=== PATIENT | male | born 1990 | race Caucasian/White ===

== ENCOUNTER 2018-09-05 12:47 | Emergency (ER) | payer MEDICAID ==
--- NOTE | 2018-09-05 12:53 | EDM.PDOC ---
ED HPI GENERAL MEDICAL PROBLEM - General Chief Complaint: Behavioral/Psych Stated Complaint: [facility] Time Seen by Provider: 09/05/18 12:56 Source of Information: Reports: Patient - History of Present Illness INITIAL COMMENTS - FREE TEXT/NARRATIVE: Patient is brought here today by ambulance from the hotel in which she was staying. He states that he has history of chronic depression, this has been worse recently. He recently had a bad breakup with his girlfriend, with this he lost his home, dog and a fair amount of money. 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 He has missed a fair amount of work due to his alcohol use and was let go from his job this morning due to this. Patient states that last night he drank a fair amount of alcohol, he had approximately a fifth of vodka or maybe 1-1/2 bottles. This morning he had approximately 4 shots of vodka. He states that his goal this morning was to drink alcohol until he didn't wake up. He states he did not particularly want to , he just felt that that would be much easier than being alive and dealing with all of the stress that has been occurring in his life recently. Currently he reports just feeling very depressed. He has somewhat of a headache , did vomit this morning which she states was due to his hangover. To drink some water but has had nothing to eat today. Patient states that he has no history of seizures. He has stopped drinking alcohol for weeks at a time previously without any side effect. Patient denies any history of heart disease or lung disease. History of depression which he is on prazosin something for sleep, he thinks this is possibly trazodone but he is not sure. Patient reports that he has some support locally and the fact that his brother and his live here in [place]. He states that they have a relationship of respect and support but they are not overly close. Patient has a history of suicide attempts 2 months ago with slitting his wrists.He states that he was hospitalized in [place]. It was recommended that he attend outpatient treatment for his alcohol use and patient states that he basically "ran away" from this and came to [place] to work. - Related Data Allergies Allergy/AdvReac Type Severity Reaction Status Date / Time iodine Allergy Hives Verified 09/05/18 12:55 shellfish derived Allergy Anaphylactic Verified 09/05/18 12:55 Shock Home Meds: Home Meds Cephalexin [Keflex] 500 mg PO TID 09/05/18 [History] Mirtazapine 15 mg PO BEDTIME 09/05/18 [History] Prazosin HCl [Prazosin] 4 mg PO DAILY 09/05/18 [History] traZODone HCl [Trazodone HCl] 50 mg PO BEDTIME 09/05/18 [History] ED ROS GENERAL - Review of Systems Review Of Systems: See Below Constitutional: Reports: No Symptoms HEENT: Reports: No Symptoms Respiratory: Reports: No Symptoms Cardiovascular: Reports: No Symptoms GI/Abdominal: Reports: Nausea (Nauseated this morning, one emesis. Patient attributes this to the amount of alcohol he drank yesterday. Denies any nausea now.), Vomiting Musculoskeletal: Reports: No Symptoms Neurological: Reports: Headache. Denies: Confusion, Dizziness Psychiatric: Reports: Anxiety, Depression, Suicidal Ideation. Denies: Agitation , Homicidal Ideation - Physical Exam Exam: See Below Exam Limited By: No Limitations General Appearance: Alert, WD/WN, No Apparent Distress Eye Exam: Bilateral Eye: Normal Inspection, PERRL Ears: Normal External Exam, Normal Canal, Normal TMs Nose: Normal Inspection, Normal Mucosa Throat/Mouth: Normal Inspection, Normal Oropharynx Head Exam: Atraumatic, Normocephalic Neck: Normal Inspection, Supple, Non-Tender Respiratory/Chest: No Respiratory Distress, Lungs Clear Cardiovascular: Normal Peripheral Pulses, Regular Rate, Rhythm, No Murmur GI/Abdominal: Normal Bowel Sounds, Soft, Non-Tender Neuro Exam (Abbreviated): Alert, Oriented Psychiatric: Depressed Mood, Flat Affect Skin Exam: Warm, Dry, Intact EKG INTERPRETATION EKG Date: 09/05/18 Rhythm: NSR Rate (Beats/Min): 86 Course - Vital Signs Last Recorded V/S: Last Vital Signs Temp 97.9 F 09/05/18 12:54 Pulse 91 09/05/18 12:54 Resp 18 09/05/18 12:54 BP 120/106 H 09/05/18 12:54 Pulse Ox 98 09/05/18 12:54 - Orders/Labs/Meds Orders: Active Orders 24 hr Category Date Time Status EKG 12 Lead [EKG Documentation Completion] [RC] STAT Care 09/05/18 12:56 Active Sodium Chloride 0.9% [Saline Flush] Med 09/05/18 13:15 Active 10 ml FLUSH ASDIRECTED PRN Saline Lock Insert [OM.PC] Routine Oth 09/05/18 13:15 Ordered Medication Orders Sodium Chloride (Saline Flush) 10 ml FLUSH ASDIRECTED PRN PRN Reason: Keep Vein Open Labs: Laboratory Tests 09/05/18 09/05/18 09/05/18 Range/Units 13:16 13:27 13:27 WBC 9.57 H (4.23-9.07) K/mm3 RBC 4.74 (4.63-6.08) M/mm3 Hgb 11.1 L (13.7-17.5) gm/L Hct 35.3 L (40.1-51.0) % MCV 74.5 L (79.0-92.2) fl MCH 23.4 L (25.7-32.2) pg MCHC 31.4 L (32.2-35.5) g/dl RDW Std Deviation 42.5 (35.1-43.9) fL Plt Count 424 H (163-337) K/mm3 MPV 9.5 (9.4-12.3) fl Neutrophils % (Manual) 62 H (40-60) % Band Neutrophils % 0 (0-10) % Lymphocytes % (Manual) 29 (20-40) % Atypical Lymphs % 6 % Monocytes % (Manual) 3 (2-10) % Eosinophils % (Manual) 0 L (0.8-7.0) % Basophils % (Manual) 0 L (0.2-1.2) Platelet Estimate Adequate Hypochromasia Moderate Microcytosis Moderate RBC Morph Comment Not Reportable Sodium 142 (136-145) mEq/L Potassium 3.8 (3.5-5.1) mEq/L Chloride 105 (98-107) mEq/L Carbon Dioxide 27 (21-32) mEq/L Anion Gap 13.8 (5-15) BUN 14 (7-18) mg/dL Creatinine 1.1 (0.7-1.3) mg/dL Est Cr Clr Drug Dosing 111.98 mL/min Estimated GFR (MDRD) > 60 (>60) mL/min BUN/Creatinine Ratio 12.7 L (14-18) Glucose 102 (74-106) mg/dL Calcium 9.3 (8.5-10.1) mg/dL Magnesium (1.8-2.4) mg/dl Total Bilirubin 0.2 (0.2-1.0) mg/dL AST 19 (15-37) U/L ALT 47 (16-63) U/L Alkaline Phosphatase 81 (46-116) U/L Total Protein 7.6 (6.4-8.2) g/dl Albumin 3.9 (3.4-5.0) g/dl Globulin 3.7 gm/dL Albumin/Globulin Ratio 1.1 (1-2) TSH 3rd Generation 0.941 (0.358-3.74) uIU/mL Urine Opiates Screen Negative (CZMVWY=685) Ur Buprenorphine Scrn Negative (CUTOFF=10) Ur Oxycodone Screen Negative (DNO1UT=578) Urine Methadone Screen Negative (SBG4TW=630) Ur Propoxyphene Screen Negative (QNUKDI=628) Ur Barbiturates Screen Negative (YHUJVF=325) Ur Tricyclics Screen Negative (CAUZSO=197) Ur Phencyclidine Scrn Negative (CUTOFF=25) Ur Amphetamine Screen Negative (FCXBWL=013) U Methamphetamines Scrn Negative (TYEXPX=913) U Benzodiazepines Scrn Negative (FDIODC=679) U Cocaine Metab Screen Negative (HBZAZB=591) U Marijuana (THC) Screen Negative (CUTOFF=50) Ethyl Alcohol 0.04 (0.00) gm% 09/05/18 Range/Units 13:27 WBC (4.23-9.07) K/mm3 RBC (4.63-6.08) M/mm3 Hgb (13.7-17.5) gm/L Hct (40.1-51.0) % MCV (79.0-92.2) fl MCH (25.7-32.2) pg MCHC (32.2-35.5) g/dl RDW Std Deviation (35.1-43.9) fL Plt Count (163-337) K/mm3 MPV (9.4-12.3) fl Neutrophils % (Manual) (40-60) % Band Neutrophils % (0-10) % Lymphocytes % (Manual) (20-40) % Atypical Lymphs % % Monocytes % (Manual) (2-10) % Eosinophils % (Manual) (0.8-7.0) % Basophils % (Manual) (0.2-1.2) Platelet Estimate Hypochromasia Microcytosis RBC Morph Comment Sodium (136-145) mEq/L Potassium (3.5-5.1) mEq/L Chloride (98-107) mEq/L Carbon Dioxide (21-32) mEq/L Anion Gap (5-15) BUN (7-18) mg/dL Creatinine (0.7-1.3) mg/dL Est Cr Clr Drug Dosing mL/min Estimated GFR (MDRD) (>60) mL/min BUN/Creatinine Ratio (14-18) Glucose (74-106) mg/dL Calcium (8.5-10.1) mg/dL Magnesium 2.1 (1.8-2.4) mg/dl Total Bilirubin (0.2-1.0) mg/dL AST (15-37) U/L ALT (16-63) U/L Alkaline Phosphatase (46-116) U/L Total Protein (6.4-8.2) g/dl Albumin (3.4-5.0) g/dl Globulin gm/dL Albumin/Globulin Ratio (1-2) TSH 3rd Generation (0.358-3.74) uIU/mL Urine Opiates Screen (UCJARA=583) Ur Buprenorphine Scrn (CUTOFF=10) Ur Oxycodone Screen (TPX8GD=263) Urine Methadone Screen (MDG9NY=735) Ur Propoxyphene Screen (DMISGM=704) Ur Barbiturates Screen (ZPCBNP=695) Ur Tricyclics Screen (PRRXUA=255) Ur Phencyclidine Scrn (CUTOFF=25) Ur Amphetamine Screen (IOQSSY=543) U Methamphetamines Scrn (TUITHQ=213) U Benzodiazepines Scrn (KPFAJF=871) U Cocaine Metab Screen (JYILNT=130) U Marijuana (THC) Screen (CUTOFF=50) Ethyl Alcohol (0.00) gm% Meds: Medications Generic Name Dose Route Start Last Admin Trade Name Freq PRN Reason Stop Dose Admin Sodium Chloride 10 ml 09/05/18 13:15 Saline Flush FLUSH ASDIRECTED PRN Keep Vein Open Discontinued Medications Generic Name Dose Route Start Last Admin Trade Name Freq PRN Reason Stop Dose Admin Acetaminophen 650 mg 09/05/18 14:22 Tylenol PO 09/05/18 14:23 NOW ONE - Re-Assessments/Exams Free Text/Narrative Re-Assessment/Exam: WBC 9570 with 62% neutrophils and no bands. Creatinine 1.1. Anion gap of 13.8. TSH 0.941. EtOH 0.4, drug screen is negative. Patient is very much willing to obtain treatment for both his depression and his alcohol use. He states it is gone on too long and he is ready to remove forward. He does not want to , he just felt that that would be easier. Patient is eating lunch, drinking fluids adequately. IV fluids not indicated. He did have a bit of headache so he was given 650 mg of Tylenol by mouth. Discussed with the counselor, Radha from [facility] and she will come up to evaluate the panic patient to see if he would be a candidate for their crisis bed. 09/05/18 14:05 Patient interviewed by Radha from [facility], he is a good candidate for their residential care facility. Report was called to nurse, Kala at [phone]. Per medication bottles that patient had, he is on mirtazapine 15 mg at bedtime, Prazosin 4 mg by mouth daily and trazodone 50 g by mouth at bedtime. Hemoglobin is a bit low at 11.1. Patient is to follow-up in the clinic in approximately 2 weeks to have this rechecked to ensure it is improving. 09/05/18 15:05 Departure - Departure Time of Disposition: 15:08 Disposition: DC/Tfer to Other 70 Condition: Fair Clinical Impression: Depressive disorder, Alcohol abuse - Discharge Information Instructions: Living With Depression Referrals: Sandra Ceballos PA [Emergency Provider] - Forms: ED Department Discharge - My Orders Last 24 Hours: My Active Orders 09/05/18 12:56 EKG 12 Lead [EKG Documentation Completion] [RC] STAT 09/05/18 13:15 Sodium Chloride 0.9% [Saline Flush] 10 ml FLUSH ASDIRECTED PRN Saline Lock Insert [OM.PC] Routine - Assessment/Plan Last 24 Hours: My Active Orders 09/05/18 12:56 EKG 12 Lead [EKG Documentation Completion] [RC] STAT 09/05/18 13:15 Sodium Chloride 0.9% [Saline Flush] 10 ml FLUSH ASDIRECTED PRN Saline Lock Insert [OM.PC] Routine
[2018-09-05] MEDS ORDERED: Sodium Chloride 0.9% 10 ML Syringe FLUSH PRN (13:15)
[2018-09-05] MEDS ORDERED: Acetaminophen 325 MG Tab PO ONE (14:22)
== END 2018-09-05 15:15 | disposition other institution (70) ==
LOC: JD.ED 12:47
DX: F32.9 Major depressive disorder, single episode, unspecified (principal); F10.10 Alcohol abuse, uncomplicated; Y90.0 Blood alcohol level of less than 20 mg/100 ml; Z91.013 Allergy to seafood
CPT/HCPCS: 36415; 80053; 80306; 83735; 84443; 85007; 85027; 93005; 99285; G0480; 93010; 99284

== ENCOUNTER 2018-09-22 12:16 | Emergency (ER) | payer MEDICAID, OTHER ==
--- NOTE | 2018-09-22 12:53 | EDM.PDOC ---
ED HPI GENERAL MEDICAL PROBLEM - General Chief Complaint: General Stated Complaint: HIGH BP Time Seen by Provider: 09/22/18 12:31 Source of Information: Reports: Patient, RN Notes Reviewed History Limitations: Reports: No Limitations - History of Present Illness INITIAL COMMENTS - FREE TEXT/NARRATIVE: The patient states that he is currently residing at [facility], but that he had a video appointment with Dr. Dangelo at [facility] today. He states that his BP was checked, and found to be elevated at 158/108, then rechecked, finding it to be 160/114. He was sent here for evaluation. The patient states that he has had some rhinorrhea for the past week, but denies having a headache, nausea, or blurry vision. The patient has taken some ibuprofen, but denies taking any nasal decongestant sprays. The patient does not have a history of hypertension, although he does have a history of binge alcoholism. His last drink was about 3 days ago. The patient is currently residing at [facility] since 09/05/2018, for treatment of binge alcoholism and depression. He is currently being treated with Pristiq and buspirone. The patient's PCP is in [place]. The patient initially moved here just for work, but is now here permanently. - Related Data Allergies Allergy/AdvReac Type Severity Reaction Status Date / Time iodine Allergy Hives Verified 09/05/18 12:55 shellfish derived Allergy Anaphylactic Verified 09/05/18 12:55 Shock Home Meds: Home Meds Desvenlafaxine Succinate [Pristiq ER] 50 mg PO DAILY 09/22/18 [History] busPIRone [Buspar] 15 mg PO TID 09/22/18 [History] Past Medical History Musculoskeletal History: Reports: Fracture (left forearm, left foot) Psychiatric History: Reports: Addiction (alcohol), Anxiety, Depression, Suicide Attempt Endocrine/Metabolic History: Reports: Obesity/BMI 30+ - Past Surgical History HEENT Surgical History: Reports: Oral Surgery (wisdom teeth extraction) GI Surgical History: Reports: Hernia, Abdominal (umbilical) Musculoskeletal Surgical History: Reports: ORIF (bilateral hands) Social & Family History - Tobacco Use Smoking Status *Q: Former Smoker Years of Tobacco use: 2 Packs/Tins Daily: 0.8 Month/Year Tobacco Last Used: Quit 2010 - Caffeine Use Caffeine Use: Reports: None - Alcohol Use Alcohol Use History: Yes Date/Time of Last Drink Comment: 1.5 L whiskey/day when binges. Last drank around 09/19/2018. Alcohol Use Frequency: Binges - Recreational Drug Use Recreational Drug Use: Yes Drug Use in Last 12 Months: No Recreational Drug Type: Reports: Cocaine (last snorted 2011), Methamphetamine ( last ate 2011) - Living Situation & Occupation Living situation: Reports: Single, Other ([facility]) Occupation: Employed ED ROS GENERAL - Review of Systems Review Of Systems: ROS reveals no pertinent complaints other than HPI. ED EXAM, GENERAL - Physical Exam Exam: See Below Exam Limited By: No Limitations General Appearance: Alert, WD/WN, No Apparent Distress Eye Exam: Bilateral Eye: EOMI, Normal Inspection Ears: Normal External Exam, Hearing Grossly Normal Nose: Normal Inspection Throat/Mouth: Normal Inspection, Normal Lips, Normal Voice, No Airway Compromise Head: Atraumatic, Normocephalic Neck: Normal Inspection, Full Range of Motion Respiratory/Chest: No Respiratory Distress, Lungs Clear, Normal Breath Sounds, No Accessory Muscle Use Cardiovascular: Normal Peripheral Pulses, Regular Rate, Rhythm, No Gallop, No JVD, No Murmur, No Rub Peripheral Pulses: 4+: Radial (L), Radial (R) GI/Abdominal: Normal Bowel Sounds, Soft, Non-Tender, No Organomegaly, No Distention, No Abnormal Bruit, No Mass, Other (Obese) (Male) Exam: Deferred Rectal (Males) Exam: Deferred Back Exam: Normal Inspection, Full Range of Motion, NT Extremities: Normal Inspection, Normal Range of Motion, Normal Capillary Refill Neurological: Alert, Oriented, Normal Cognition, No Motor/Sensory Deficits Psychiatric: Normal Affect Skin Exam: Warm, Dry, Intact, Normal Color, No Rash Course - Vital Signs Last Recorded V/S: Last Vital Signs Temp 36.6 C 09/22/18 12:25 Pulse 84 09/22/18 12:25 Resp 18 09/22/18 12:25 BP 145/115 H 09/22/18 12:25 Pulse Ox 99 09/22/18 12:25 - Re-Assessments/Exams Free Text/Narrative Re-Assessment/Exam: 09/22/18 12:47 The patient's BP here in the ED is 145/115, and he has no complaints of nausea, headache, or blurry vision. I explained to the patient that his blood pressure is nowhere near where we would consider emergent treatment, and I also explained how he can check his blood pressure, to see if he has hypertension. Departure - Departure Time of Disposition: 12:48 Disposition: Home, Self-Care 01 Condition: Good Clinical Impression: Elevated blood pressure reading - Discharge Information *PRESCRIPTION DRUG MONITORING PROGRAM REVIEWED*: Not Applicable *COPY OF PRESCRIPTION DRUG MONITORING REPORT IN PATIENT RAI: Not Applicable Instructions: Hypertension Referrals: PCP,Not In Area [Primary Care Provider] - Forms: ED Department Discharge Additional Instructions: You were seen in the emergency room for an elevated blood pressure reading at [facility]. Here in the ED, your blood pressure was only mildly elevated at 145/115, well below a level that would require emergent treatment. In order to determine if you have hypertension (chronically elevated blood pressure while under restful conditions), your blood pressure needs to be checked under restful conditions = you are sitting quietly for at least 5, and preferably 15 minutes, you are not sick, you are not in pain, and you are not anxious. While under restful conditions, have your blood pressure checked 2-3 times a week, preferably at different times of the day, for 2-3 weeks. Write the numbers down, and show them to your PCP, who can then determine if your numbers reflect hypertension. If any other problems, please do not hesitate to return to the ER.
== END 2018-09-22 13:03 | disposition home or self-care (01) ==
LOC: JD.ED 12:16
DX: R03.0 Elevated blood-pressure reading, without diagnosis of hypertension (principal); Z91.09 Other allergy status, other than to drugs and biological substances; Z91.013 Allergy to seafood; Z79.899 Other long term (current) drug therapy; Z87.891 Personal history of nicotine dependence
CPT/HCPCS: 99281; 99283

== ENCOUNTER 2018-10-14 15:37 | Emergency (ER) | payer MEDICAID ==
[2018-10-14] MEDS ORDERED: Sodium Chloride 0.9% 10 ML Syringe FLUSH PRN (16:06)
[2018-10-14] MEDS ORDERED: LORazepam 2 MG/ML SDV IVPUSH ONE ×2 (16:07→17:45)
[2018-10-14] MEDS ORDERED: Sodium Chloride 0.9% 1,000 ML IV SCH (16:15)
--- NOTE | 2018-10-14 16:48 | EDM.PDOCBH ---
ED HPI GENERAL MEDICAL PROBLEM - General Chief Complaint: Drug or Alcohol Abuse Stated Complaint: [facility] Time Seen by Provider: 10/14/18 15:47 Source of Information: Reports: Patient, EMS History Limitations: Reports: No Limitations - History of Present Illness INITIAL COMMENTS - FREE TEXT/NARRATIVE: The patient presents by [facility] for alcohol withdrawal. The patient admits to drinking heavily for the past 7 days. He drank a total of 8 1 /2 gallons of whiskey over the past 7 days. He was seeing [facility] and was at the [facility] over a week ago. His job was not cooperating and he had to leave and then he started drinking again. He tried to drink last night and started vomiting. He vomited many times last night and today. He is shaking and has nausea and vomiting. He denies using street drugs. He says he is a domingo drinker and he will got weeks without drinking and then does it for many days. He started drinking at age 12. Onset: Gradual Duration: Day(s): (last night) Severity: Severe Improves with: Reports: None Worsens with: Reports: None Associated Symptoms: Reports: Nausea/Vomiting. Denies: Chest Pain, Cough, Fever /Chills, Headaches, Shortness of Breath Treatments COUNTY DIRECTOR: Reports: Other (see below) Other Treatments COUNTY DIRECTOR: iv and zofran Right Upper Abdomen Pain Score (Numeric/FACES): 6 Headache Pain Score (Numeric/FACES): 4 - Related Data Allergies Allergy/AdvReac Type Severity Reaction Status Date / Time iodine Allergy Hives Verified 09/05/18 12:55 shellfish derived Allergy Anaphylactic Verified 09/05/18 12:55 Shock Home Meds: Home Meds busPIRone [Buspar] 15 mg PO TID 09/22/18 [History] LORazepam [Ativan] 1 mg PO TID #18 tablet 10/14/18 [Rx] Ondansetron [Zofran ODT] 4 mg PO Q6H PRN #20 tab.dis 10/14/18 [Rx] Past Medical History Musculoskeletal History: Reports: Fracture Neurological History: Reports: Concussion Psychiatric History: Reports: Addiction, Anxiety, Depression, Suicide Attempt Endocrine/Metabolic History: Reports: Obesity/BMI 30+ - Infectious Disease History Infectious Disease History: Reports: Chicken Pox - Past Surgical History HEENT Surgical History: Reports: Oral Surgery GI Surgical History: Reports: Hernia, Abdominal Musculoskeletal Surgical History: Reports: ORIF Social & Family History - Tobacco Use Smoking Status *Q: Unknown Ever Smoked - Caffeine Use Caffeine Use: Reports: Coffee, Energy Drinks - Alcohol Use Date of Last Drink: 10/13/18 Time of Last Drink: 01:00 - Recreational Drug Use Recreational Drug Use: No - Living Situation & Occupation Living situation: Reports: Single, Other ([facility]) Occupation: Employed ED ROS GENERAL - Review of Systems Review Of Systems: See Below Constitutional: Reports: No Symptoms HEENT: Reports: No Symptoms Respiratory: Reports: No Symptoms Cardiovascular: Reports: No Symptoms Endocrine: Reports: No Symptoms GI/Abdominal: Reports: Nausea, Vomiting. Denies: Abdominal Pain, Diarrhea : Reports: No Symptoms Musculoskeletal: Reports: No Symptoms Skin: Reports: No Symptoms Neurological: Reports: Other (shaking) ED EXAM, BEHAVIORAL HEALTH - Physical Exam Exam: See Below Exam Limited By: No Limitations General Appearance: Alert, Mild Distress Ears: Normal External Exam Nose: Normal Inspection Head: Atraumatic, Normocephalic Neck: Normal Inspection Respiratory/Chest: No Respiratory Distress, Lungs Clear, Normal Breath Sounds Cardiovascular: Regular Rate, Rhythm, No Edema, No Murmur GI/Abdominal: Soft, Non-Tender, No Organomegaly, No Mass Extremities: Normal Inspection Neurological: Alert, No Motor/Sensory Deficits, Oriented x 3 COURSE, BEHAVIORAL HEALTH COMP - Course Vital Signs: Last Vital Signs Temp 98.8 F 10/14/18 16:27 Pulse 108 H 10/14/18 16:27 Resp 20 10/14/18 16:27 BP 139/94 H 10/14/18 16:27 Pulse Ox 95 10/14/18 16:27 Orders, Labs, Meds: Active Orders 24 hr Category Date Time Status Cardiac Monitoring [RC] . DIRECTED Care 10/14/18 16:06 Active Peripheral IV Care [RC] . DIRECTED Care 10/14/18 16:07 Active DRUG SCREEN, URINE [URCHEM] Stat Lab 10/14/18 16:06 Ordered Magnesium Sulfate/Water [Magnesium Sulfate 2 GM in Med 10/14/18 17:10 Active Water 50 ML] 2 gm Premix Bag 1 bag IV ONETIME Sodium Chloride 0.9% [Normal Saline] 1,000 ml Med 10/14/18 16:15 Active IV .BOLUS Sodium Chloride 0.9% [Saline Flush] Med 10/14/18 16:06 Active 10 ml FLUSH ASDIRECTED PRN Peripheral IV Insertion Adult [OM.PC] Stat Oth 10/14/18 16:06 Ordered Medication Orders Sodium Chloride (Normal Saline) 1,000 mls @ 1,000 mls/hr IV .BOLUS SHANNON Last Admin: 10/14/18 16:24 Dose: 1,000 mls/hr Magnesium Sulfate 2 gm/ Premix 50 mls @ 25 mls/hr IV ONETIME ONE Stop: 10/14/18 19:09 Last Admin: 10/14/18 17:20 Dose: 25 mls/hr Sodium Chloride (Saline Flush) 10 ml FLUSH ASDIRECTED PRN PRN Reason: Keep Vein Open Last Admin: 10/14/18 16:26 Dose: 10 ml Laboratory Tests 10/14/18 10/14/18 Range/Units 16:25 16:25 WBC 6.85 (4.23-9.07) K/mm3 RBC 5.36 (4.63-6.08) M/mm3 Hgb 11.4 L (13.7-17.5) gm/L Hct 36.0 L (40.1-51.0) % MCV 67.2 L (79.0-92.2) fl MCH 21.3 L (25.7-32.2) pg MCHC 31.7 L (32.2-35.5) g/dl RDW Std Deviation 43.1 (35.1-43.9) fL Plt Count 317 (163-337) K/mm3 MPV 8.9 L (9.4-12.3) fl Neut % (Auto) 51.5 (34.0-67.9) % Lymph % (Auto) 34.9 (21.8-53.1) % [place] % (Auto) 12.1 (5.3-12.2) % Eos % (Auto) 0.7 L (0.8-7.0) Baso % (Auto) 0.7 (0.1-1.2) % Neut # (Auto) 3.52 (1.78-5.38) K/mm3 Lymph # (Auto) 2.39 (1.32-3.57) K/mm3 [place] # (Auto) 0.83 H (0.30-0.82) K/mm3 Eos # (Auto) 0.05 (0.04-0.54) K/mm3 Baso # (Auto) 0.05 (0.01-0.08) K/mm3 Manual Slide Review Abnormal smear Sodium 138 (136-145) mEq/L Potassium 3.1 L (3.5-5.1) mEq/L Chloride 101 (98-107) mEq/L Carbon Dioxide 25 (21-32) mEq/L Anion Gap 15.1 H (5-15) BUN 8 (7-18) mg/dL Creatinine 1.1 (0.7-1.3) mg/dL Est Cr Clr Drug Dosing 111.98 mL/min Estimated GFR (MDRD) > 60 (>60) mL/min BUN/Creatinine Ratio 7.3 L (14-18) Glucose 107 H (74-106) mg/dL Calcium 8.8 (8.5-10.1) mg/dL Magnesium 1.4 L (1.8-2.4) mg/dl Total Bilirubin 1.0 (0.2-1.0) mg/dL AST 37 (15-37) U/L ALT 46 (16-63) U/L Alkaline Phosphatase 63 (46-116) U/L Total Protein 7.7 (6.4-8.2) g/dl Albumin 4.1 (3.4-5.0) g/dl Globulin 3.6 gm/dL Albumin/Globulin Ratio 1.1 (1-2) Ethyl Alcohol 0.00 (0.00) gm% Medications Generic Name Dose Route Start Last Admin Trade Name Freq PRN Reason Stop Dose Admin Sodium Chloride 1,000 mls @ 1,000 mls/hr 10/14/18 16:15 10/14/18 16:24 Normal Saline IV 1,000 mls/hr .BOLUS SHANNON Administration Magnesium Sulfate 2 gm/ Premix 50 mls @ 25 mls/hr 10/14/18 17:10 10/14/18 17: 20 IV 10/14/18 19:09 25 mls/hr ONETIME ONE Administration Sodium Chloride 10 ml 10/14/18 16:06 10/14/18 16:26 Saline Flush FLUSH 10 ml ASDIRECTED PRN Administration Keep Vein Open Discontinued Medications Generic Name Dose Route Start Last Admin Trade Name Freq PRN Reason Stop Dose Admin Lorazepam 1 mg 10/14/18 16:07 10/14/18 16:24 Ativan IVPUSH 10/14/18 16:08 1 mg ONETIME ONE Administration Lorazepam 0.5 mg 10/14/18 17:45 Ativan IVPUSH 10/14/18 17:46 ONETIME ONE Metoclopramide HCl 10 mg 10/14/18 17:07 10/14/18 17:14 Reglan IVPUSH 10/14/18 17:08 10 mg ONETIME ONE Administration Re-Assessment/Re-Exam: I ordered an IV LR 1L bolus, zofran 4mg IV, ativan 1mg IV, labs and a urine drug screen. His CBC looks good. His potassium was low at 3.1. His anion gap was elevated at 15.1. His glucose was 107. His magnesium was low at 1.4. I gave him 2 grams of magnesium. His ETOH was 0. He still is nauseated so I ordered reglan 10mg IV. He feels better. I ordered some ativan 0.5mg IV. I will discharge him home with some zofran and ativan to help with withdrawals. I will have him call [facility] tomorrow. Departure - Departure Time of Disposition: 18:10 Disposition: Home, Self-Care 01 Condition: Good Clinical Impression: Alcohol withdrawal syndrome Qualifiers: Complication of substance-induced condition: uncomplicated Qualified Code(s): F10.230 - Alcohol dependence with withdrawal, uncomplicated - Discharge Information *PRESCRIPTION DRUG MONITORING PROGRAM REVIEWED*: No *COPY OF PRESCRIPTION DRUG MONITORING REPORT IN PATIENT RAI: No Prescriptions: LORazepam [Ativan] 1 mg PO TID #18 tablet Ondansetron [Zofran ODT] 4 mg PO Q6H PRN #20 tab.dis PRN Reason: Nausea\vomiting Referrals: PCP,None [Primary Care Provider] - Kalpesh Martinez [email or web address] [Physician Auto Claims Adjuster] - 1 Week Additional Instructions: Drink plenty of fluids. Take pepcid 20mg daily for 5 days. Take a multivitamin daily. Take the ativan 1mg by mouth 3 times per day for 3 days, then 1 mg by mouth 2 times per day for 3 days and then 1mg by mouth at night for 3 days. Take zofran every 6 hours as needed for nausea and vomiting. Call [facility] in the morning for help stopping breathing. Please return if you are worse. - My Orders Last 24 Hours: My Active Orders 10/14/18 16:06 Cardiac Monitoring [RC] . DIRECTED DRUG SCREEN, URINE [URCHEM] Stat Sodium Chloride 0.9% [Saline Flush] 10 ml FLUSH ASDIRECTED PRN Peripheral IV Insertion Adult [OM.PC] Stat 10/14/18 16:07 Peripheral IV Care [RC] . DIRECTED 10/14/18 16:15 Sodium Chloride 0.9% [Normal Saline] 1,000 ml IV .BOLUS 10/14/18 17:10 Magnesium Sulfate/Water [Magnesium Sulfate 2 GM in Water 50 ML] 2 gm Premix Bag 1 bag IV ONETIME - Assessment/Plan Last 24 Hours: My Active Orders 10/14/18 16:06 Cardiac Monitoring [RC] . DIRECTED DRUG SCREEN, URINE [URCHEM] Stat Sodium Chloride 0.9% [Saline Flush] 10 ml FLUSH ASDIRECTED PRN Peripheral IV Insertion Adult [OM.PC] Stat 10/14/18 16:07 Peripheral IV Care [RC] . DIRECTED 10/14/18 16:15 Sodium Chloride 0.9% [Normal Saline] 1,000 ml IV .BOLUS 10/14/18 17:10 Magnesium Sulfate/Water [Magnesium Sulfate 2 GM in Water 50 ML] 2 gm Premix Bag 1 bag IV ONETIME
[2018-10-14] MEDS ORDERED: Metoclopramide 10 MG/2 ML SDV IVPUSH ONE (17:07)
[2018-10-14] MEDS ORDERED: Magnesium Sulfate/Water 2 GM in Premix Bag 1 BAG IV ONE (17:10)
== END 2018-10-14 19:38 | disposition home or self-care (01) ==
LOC: JD.ED 15:37
DX: F10.230 Alcohol dependence with withdrawal, uncomplicated (principal); F41.9 Anxiety disorder, unspecified; F32.9 Major depressive disorder, single episode, unspecified; Z79.899 Other long term (current) drug therapy
CPT/HCPCS: 36415; 80053; 80306; 83735; 85025; 96361; 96365; 96366; 96375; 96376; 99284; G0480; J2060; J2765; J3475; J7040

== ENCOUNTER 2018-10-16 12:06 | Emergency (ER) | payer SELFPAY ==
[2018-10-16] MEDS ORDERED: Sodium Chloride 0.9% 10 ML Syringe FLUSH PRN (12:25)
[2018-10-16] MEDS ORDERED: Ondansetron 4 MG/2 ML SDV IVPUSH ONE (12:34)
--- NOTE | 2018-10-16 12:46 | EDM.PDOCBH ---
ED HPI GENERAL MEDICAL PROBLEM - General Chief Complaint: Drug or Alcohol Abuse Stated Complaint: medical clearance for [facility] Time Seen by Provider: 10/16/18 12:18 Source of Information: Reports: Patient, Old Records, RN Notes Reviewed History Limitations: Reports: No Limitations - History of Present Illness INITIAL COMMENTS - FREE TEXT/NARRATIVE: Patient is a 27-year-old male who presents to the ED today for the evaluation of medical clearance so that he may be placed in the RISK bed at [facility]. He notes that he was seen here a few nights ago for over consumption of alcohol as well. The patient relates multiple stressors at home that have led him to start drinking again. He states that he has been on a binge of alcohol drinking for the last 2 weeks, where he is drinking a half a gallon of whiskey daily. However last night he states that he only drank 8 or 9 beers as he was not able to stomach the whiskey any longer. He states his last drink was around 10 or 11 PM. He comes to the ED with nausea but no vomiting and diarrhea , muscle soreness in his abdomen from vomiting the other night prior, he states that he also has a mild headache at this time. He did come to the ED with a member from the [facility] facility by the name of Shaista, and they are requesting that he be medically evaluated for detox clearance. He will need to be sent to the [facility] with medications to help him assist with the detox. The patient states that his last real meal was yesterday. - Related Data Allergies Allergy/AdvReac Type Severity Reaction Status Date / Time iodine Allergy Hives Verified 09/05/18 12:55 shellfish derived Allergy Anaphylactic Verified 09/05/18 12:55 Shock Home Meds: Home Meds busPIRone [Buspar] 15 mg PO TID 09/22/18 [History] LORazepam [Ativan] 1 mg PO ASDIRECTED #13 tablet 10/16/18 [Rx] Ondansetron [Zofran ODT] 4 mg PO Q6H PRN #28 tab.dis 10/16/18 [Rx] Past Medical History Musculoskeletal History: Reports: Fracture Neurological History: Reports: Concussion Psychiatric History: Reports: Addiction, Anxiety, Depression, Suicide Attempt Endocrine/Metabolic History: Reports: Obesity/BMI 30+ - Infectious Disease History Infectious Disease History: Reports: Chicken Pox - Past Surgical History HEENT Surgical History: Reports: Oral Surgery GI Surgical History: Reports: Hernia, Abdominal Musculoskeletal Surgical History: Reports: ORIF Social & Family History - Tobacco Use Smoking Status *Q: Never Smoker - Caffeine Use Caffeine Use: Reports: Coffee, Energy Drinks - Alcohol Use Days Per Week of Alcohol Use: 7 Number of Drinks Per Day: 12 Total Drinks Per Week: 84 - Recreational Drug Use Recreational Drug Use: No - Living Situation & Occupation Living situation: Reports: Single, Other ([facility]) Occupation: Employed ED ROS GENERAL - Review of Systems Review Of Systems: See Below Constitutional: Reports: Chills HEENT: Denies: Vertigo, Vision Change Respiratory: Reports: No Symptoms Cardiovascular: Reports: No Symptoms Endocrine: Reports: No Symptoms GI/Abdominal: Reports: Abdominal Pain (Generalized due to episodes of vomiting a few days ago.), Diarrhea, Nausea. Denies: Vomiting : Reports: No Symptoms Musculoskeletal: Reports: No Symptoms Skin: Reports: No Symptoms Neurological: Reports: No Symptoms Psychiatric: Reports: No Symptoms Hematologic/Lymphatic: Reports: No Symptoms Immunologic: Reports: No Symptoms ED EXAM, BEHAVIORAL HEALTH - Physical Exam Exam: See Below Exam Limited By: No Limitations General Appearance: Alert, WD/WN, No Apparent Distress Eye Exam: Bilateral Eye: EOMI, Normal Inspection, PERRL Ears: Normal External Exam Nose: Normal Inspection Throat/Mouth: Normal Inspection, Normal Lips, Normal Teeth, Normal Gums, Normal Oropharynx, Normal Voice, No Airway Compromise Head: Atraumatic, Normocephalic Neck: Normal Inspection, Supple, Non-Tender, Full Range of Motion Respiratory/Chest: No Respiratory Distress, Lungs Clear, Normal Breath Sounds, No Accessory Muscle Use, Chest Non-Tender Cardiovascular: Normal Peripheral Pulses, Regular Rate, Rhythm, No Edema, No Murmur GI/Abdominal: Normal Bowel Sounds, Soft, Non-Tender, No Distention Extremities: Normal Inspection, Normal Capillary Refill Neurological: Alert, Normal Mood/Affect, Normal Cognition, Normal Gait, Normal Reflexes, No Motor/Sensory Deficits, Oriented x 3 Psychiatric: Alert, Normal Affect, Normal Cognition, Normal Mood, Oriented Skin Exam: Warm, Dry, Intact, Normal color, No rash COURSE, BEHAVIORAL HEALTH COMP - Course Vital Signs: Last Vital Signs Temp 97.9 F 10/16/18 12:16 Pulse 110 H 10/16/18 12:16 Resp 16 10/16/18 12:16 BP 126/106 H 10/16/18 12:16 Pulse Ox 100 10/16/18 12:16 Orders, Labs, Meds: Active Orders 24 hr Category Date Time Status Peripheral IV Care [RC] . DIRECTED Care 10/16/18 12:25 Active CBC WITH MANUAL DIFF [HEME] Stat Lab 10/16/18 12:37 Results Sodium Chloride 0.9% [Saline Flush] Med 10/16/18 12:25 Active 10 ml FLUSH ASDIRECTED PRN Peripheral IV Insertion Adult [OM.PC] Routine Oth 10/16/18 12:25 Ordered Medication Orders Sodium Chloride (Saline Flush) 10 ml FLUSH ASDIRECTED PRN PRN Reason: Keep Vein Open Last Admin: 10/16/18 12:42 Dose: 10 ml Laboratory Tests 10/16/18 10/16/18 10/16/18 Range/Units 12:37 12:37 13:02 WBC 7.14 (4.23-9.07) K/mm3 RBC 5.42 (4.63-6.08) M/mm3 Hgb 11.4 L (13.7-17.5) gm/L Hct 37.1 L (40.1-51.0) % MCV 68.5 L (79.0-92.2) fl MCH 21.0 L (25.7-32.2) pg MCHC 30.7 L (32.2-35.5) g/dl RDW Std Deviation 43.5 (35.1-43.9) fL Plt Count 290 (163-337) K/mm3 MPV 9.6 (9.4-12.3) fl Sodium 137 (136-145) mEq/L Potassium 3.7 (3.5-5.1) mEq/L Chloride 102 (98-107) mEq/L Carbon Dioxide 23 (21-32) mEq/L Anion Gap 15.7 H (5-15) BUN 12 (7-18) mg/dL Creatinine 1.1 (0.7-1.3) mg/dL Est Cr Clr Drug Dosing 111.98 mL/min Estimated GFR (MDRD) > 60 (>60) mL/min BUN/Creatinine Ratio 10.9 L (14-18) Glucose 125 H (74-106) mg/dL Calcium 9.0 (8.5-10.1) mg/dL Magnesium 1.8 (1.8-2.4) mg/dl Total Bilirubin 0.2 (0.2-1.0) mg/dL AST 28 (15-37) U/L ALT 45 (16-63) U/L Alkaline Phosphatase 68 (46-116) U/L Total Protein 7.4 (6.4-8.2) g/dl Albumin 3.7 (3.4-5.0) g/dl Globulin 3.7 gm/dL Albumin/Globulin Ratio 1.0 (1-2) Urine Opiates Screen Negative (KXAFEJ=042) Ur Buprenorphine Scrn Negative (CUTOFF=10) Ur Oxycodone Screen Negative (LEB8RB=452) Urine Methadone Screen Negative (ZFT5YX=809) Ur Propoxyphene Screen Negative (BQKQUI=040) Ur Barbiturates Screen Negative (CBECXE=413) Ur Tricyclics Screen Negative (ZHAFWF=567) Ur Phencyclidine Scrn Negative (CUTOFF=25) Ur Amphetamine Screen Negative (NNHOEH=625) U Methamphetamines Scrn Negative (UARYVI=604) U Benzodiazepines Scrn Negative (BDNRXC=346) U Cocaine Metab Screen Negative (PQMONQ=701) U Marijuana (THC) Screen Negative (CUTOFF=50) Ethyl Alcohol 0.00 (0.00) gm% Medications Generic Name Dose Route Start Last Admin Trade Name Freq PRN Reason Stop Dose Admin Sodium Chloride 10 ml 10/16/18 12:25 10/16/18 12:42 Saline Flush FLUSH 10 ml ASDIRECTED PRN Administration Keep Vein Open Discontinued Medications Generic Name Dose Route Start Last Admin Trade Name Freq PRN Reason Stop Dose Admin Ondansetron HCl 4 mg 10/16/18 12:34 10/16/18 12:43 Zofran IVPUSH 10/16/18 12:35 4 mg ONETIME ONE Administration Discharge vs Psych Eval/Treatment:: 10/16/18 13:25 Patient presents to the ED for medical clearance to be placed in the RISK bed at [facility]. I did order a EtOH, CBC, CMP, urine drug screen and further evaluation. His EtOH level is 0.00, and all other labs are essentially within normal limits. His anion gap was up had elevated at 15.7 but I feel he can I have provided the patient with 5 days worth of Ativan, to be taken 1 mg 3 times daily for 3 days and then only 1 mg twice daily for 2 days, and oral PRN Zofran as needed for nausea. Departure - Departure Time of Disposition: 13:33 Disposition: DC/Tfer to Other 70 Condition: Fair Clinical Impression: Alcohol withdrawal Qualifiers: Complication of substance-induced condition: uncomplicated Qualified Code(s): F10.230 - Alcohol dependence with withdrawal, uncomplicated - Discharge Information *PRESCRIPTION DRUG MONITORING PROGRAM REVIEWED*: No *COPY OF PRESCRIPTION DRUG MONITORING REPORT IN PATIENT RAI: No Instructions: Alcohol Withdrawal, [id number] Referrals: PCP,None [Primary Care Provider] - Additional Instructions: You have been evaluated in the ED today for your alcohol withdrawal and medical clearance for placement at [facility]. Your labs were essentially within normal limits. Your blood alcohol level was 0.00. You are cleared for placement into the RISK bed at [facility] facility. You have been E prescribed a prescription for Ativan, this is to be taken 1 mg 3 times a day for 3 days and then 1 mg twice a day for 2 days. You'll also have been given a prescription for Zofran, 1 tablet under the tongue every 6 hours as needed for nausea. Please increase your oral fluid intake as well. Please return to the ED if your symptoms change or worsen. - My Orders Last 24 Hours: My Active Orders 10/16/18 12:25 Peripheral IV Care [RC] . DIRECTED Sodium Chloride 0.9% [Saline Flush] 10 ml FLUSH ASDIRECTED PRN Peripheral IV Insertion Adult [OM.PC] Routine 10/16/18 12:37 CBC WITH MANUAL DIFF [HEME] Stat - Assessment/Plan Last 24 Hours: My Active Orders 10/16/18 12:25 Peripheral IV Care [RC] . DIRECTED Sodium Chloride 0.9% [Saline Flush] 10 ml FLUSH ASDIRECTED PRN Peripheral IV Insertion Adult [OM.PC] Routine 10/16/18 12:37 CBC WITH MANUAL DIFF [HEME] Stat
== END 2018-10-16 13:43 | disposition other institution (70) ==
LOC: JD.ED 12:06
DX: F10.230 Alcohol dependence with withdrawal, uncomplicated (principal); F41.9 Anxiety disorder, unspecified; F32.9 Major depressive disorder, single episode, unspecified; Z79.899 Other long term (current) drug therapy; Z88.8 Allergy status to other drugs, medicaments and biological substances; Z91.013 Allergy to seafood
CPT/HCPCS: 36415; 80053; 80306; 83735; 85007; 85027; 96374; 99283; G0480; J2405; 99284